=== PATIENT | female | born 1950 ===

== ENCOUNTER → 2018-01-31 | Outpatient (CLI) | payer MEDICARE ==
[2015-10-27 10:58] VITALS: BP 127/74
[~2018-01-31] MED LIST: AMLO10TA6 PO; BIMA2.5D EACHEYE; CA C1TAB63 PO; CYAN10005 PO; FENO160T PO; FLUT50DI IH; MULT-650 PO; OXYC-323 PO
--- NOTE | 2018-01-31 14:25 | RAD ---
Right upper extremity ultrasound without comparison for right anterior distal upper arm nodule for 2 months. TECHNIQUE AND FINDINGS: Within the area of interest, there is a subcutaneous ovoid circumscribed homogeneously isoechoic nodule with imaging characteristics most consistent with a benign lipoma. There is no blood flow to this nodule. IMPRESSION: 1. 1.5 cm lipomatous lesion of the subcutaneous tissues at the area of interest. Electronically signed by: Davidson Diaz MD (01/31/2018 2:22 PM) [id number]
== END | disposition home or self-care (01) ==
LOC: US 10:59
PROVIDERS: ATTEND Nurse Practitioner Family
DX: D48.1 Neoplasm of uncertain behavior of connective and other soft tissue (principal)
CPT/HCPCS: 76881

== ENCOUNTER → 2020-05-20 | Outpatient (CLI) | payer MEDICARE ==
[2015-10-27 10:58] VITALS: BP 127/74
[~2020-05-20] MED LIST changes: +AMLO-187 PO; -AMLO10TA6 PO; +CYAN-25 PO; -CYAN10005 PO; -OXYC-323 PO; +OXYC1TAB15 PO
--- NOTE | 2020-05-21 19:25 | RAD ---
DATE: 05/20/2020 EXAM: MAMMO [facility] SCREENING BILATERAL HISTORY: Screening COMPARISON: 01/28/2016 This study was interpreted with the benefit of Computerized Aided Detection (CAD). Breast Density: SCATTERED The breast parenchyma shows scattered fibroglandular densities. Breast parenchyma level B. FINDINGS: No suspicious calcification, architectural distortion, or mass in either breast. IMPRESSION: No evidence of malignancy. BI-RADS CATEGORY: 1 NEGATIVE RECOMMENDED FOLLOW-UP: 12M 12 MONTH FOLLOW-UP PQRS compliance statement: Patient information was entered into a reminder system with a target due date for the next mammogram. Mammography is a sensitive method for finding small breast cancers, but it does not detect them all and is not a substitute for careful clinical examination. A negative mammogram does not negate a clinically suspicious finding and should not result in delay in biopsying a clinically suspicious abnormality. "Our facility is accredited by the [employer] Mammography Program."
== END ==
LOC: MAMMO 08:56
PROVIDERS: ATTEND Obstetrics & Gynecology
DX: Z12.31 Encounter for screening mammogram for malignant neoplasm of breast (principal)
CPT/HCPCS: 77063; 77067

== ENCOUNTER → 2021-05-26 | Outpatient (CLI) | payer MEDICARE ==
[2015-10-27 10:58] VITALS: BP 127/74
--- NOTE | 2021-05-26 14:14 | RAD ---
INDICATION: Screening for osteopenia/osteoporosis. Reason: VIT D DEF / Spl. Instructions: / History : COMPARISON: None. TECHNIQUE: Bone densitometry was performed through the lumbar spine and proximal femur. IMPRESSION: Lumbar Spine: BMD: 0.99 T-Score: -1.6 Range: Osteopenic Proximal Femur: BMD: 0.67 T-Score: -2.3 Range: Osteopenia World Health Organization Criteria for Bone Density: T-Score: > -1.0: Normal Range < -1.0 to -2.5: Osteopenic Range < -2.5: Osteoporotic Range Electronically signed by: Xavier Cesar MD (05/26/2021 2:12 PM) [id number]
== END ==
LOC: DXRAD 13:10
PROVIDERS: ATTEND Family Medicine
DX: M85.89 Other specified disorders of bone density and structure, multiple sites (principal); E55.9 Vitamin D deficiency, unspecified
CPT/HCPCS: 77080